=== PATIENT | female | born 1975 | race Caucasian/White ===

== ENCOUNTER 2020-09-13 15:19 | Outpatient (CLI) | payer OTHER, SELFPAY ==
--- NOTE | ~2020-09-13 | MM_ITS ---
EXAMINATION: MM screening [facility] HISTORY: Screening TECHNIQUE: Craniocaudal and mediolateral oblique 3-D tomosynthesis images were obtained and synthetic 2-D images were generated. CAD analysis was submitted and interpreted. COMPARISON: Comparison to multiple prior studies sequentially, with oldest reviewed study dated 08/28. BREAST PARENCHYMAL COMPOSITION: There are scattered areas of fibroglandular density. FINDINGS: There is no evidence of suspicious mass, calcification, or architectural distortion to sugg est malignancy in either breast. There has been no suspicious interval change. IMPRESSION: 1. No mammographic evidence of malignancy. 2. Recommend routine screening mammography in one year. BI-RADS Category 1: Negative Reviewed, dictated and finalized at location A.
== END 2020-09-13 15:20 | disposition home or self-care (01) ==
LOC: ANHIMG 15:23
PROVIDERS: PCP Obstetrics & Gynecology; Visit Provider Obstetrics & Gynecology
DX: Z12.31 Encounter for screening mammogram for malignant neoplasm of breast (principal)
CPT/HCPCS: 77063; 77067

== ENCOUNTER → 2020-10-16 01:12 | Outpatient (CLI) | payer OTHER, SELFPAY ==
[2020-10-16 19:43] LABS: SARS-CoV-2 RNA PCR Negative
== END ==
PROVIDERS: PCP Obstetrics & Gynecology; Visit Provider Internal Medicine Gastroenterology
DX: Z01.812 Encounter for preprocedural laboratory examination (principal); Z20.822 Contact with and (suspected) exposure to COVID-19
CPT/HCPCS: C9803; U0003; U0005

== ENCOUNTER 2020-10-20 02:18 | Day surgery (SDC) | payer OTHER, SELFPAY ==
[2020-10-12 08:50] VITALS: BMI 22.6
--- NOTE | 2020-10-20 08:24 | WPDANESEPPF ---
Anes - Initial Pre Proc Eval Procedure: Operation Date: 10/20/20 13:30 Proposed Procedures p Colonoscopy - Mani Murcia MD Date/Time: 10/20/20 08:24 Surgeon: Mani Murcia MD Pre Op Diagnosis: change in bowel habits, dark stools Patient Data Age: 45 Gender: F Height: 1.68 m Weight: 63.5 kg Allergies Allergy/AdvReac Type Severity Reaction Status Date / Time Penicillins Allergy Mild HIVES Verified 10/20/20 12:31 Home Medications Medication Instructions Recorded Confirmed Type sod picosulf 10 mg-magnes 3.5 160 ml PO BID #160 ml 09/28/20 10/20/20 Rx gram-citric 12 gram/160 mL oral solution Patient hx anesthesia problems: none Family hx anesthesia problems: none [facility] Past Medical History Medical History (Updated 10/20/20 @ 08:24 by Arik Hou MD) Arthritis Social History Social History Smoking status: Never smoker Alcohol intake: current Drinks per week: 3 Living arrangements: with family Spiritual care concerns: No Anes - Eval Final PreProcedure Day of Procedure 10/20/20 08:24 Patient weight: normal Heart: regular rate and rhythm Lungs: clear to auscultation and normal air movement Airway: Mallampati scale class II Neurological: alert and oriented Last oral intake: >/= 8 hours ASA classification: I Emergent: no Anesthetic plan: proceed Anesthesia type and monitoring: general GIVS Informed Consent: The patient's anesthetic plan and its attendant risks and benefits were discussed with the patient/family/POA. Questions were solicited and answers provided to the satisfaction of the patient/family/POA.
[2020-10-20 12:33] VITALS: BP 118/75; PULSE 86; RESP 16; TEMP 35.8; O2SAT 99; BMI 22.8
[2020-10-20] MEDS: LACTATED RINGERS 1,000 ML 150 ML IV CONT (12:54)
--- NOTE | 2020-10-20 13:02 | P.HP_ITS ---
History of Present Illness History of Present Illness Consent: Risks, benefits, and alternatives have been discussed and questions answered. Patient agrees to proceed with procedure. Chief complaint: change in bowel habits, dark stools Narrative: Betsy Mcneal is a 45 year old female here for first colon screening Review of Systems Constitutional: Constitutional: Denies headache(s) and Denies weakness Eyes: Eyes: Denies blurry vision ENT: Reports Normal hearing present, Denies headache(s) and Denies neck pain Cardiovascular: Cardiovascular: Denies chest pain and Denies dyspnea Respiratory: Respiratory: Denies dyspnea Gastrointestinal: Gastrointestinal: Reports no additional gastrointestinal complaints Genitourinary: Genitourinary: Denies dysuria Musculoskeletal: Musculoskeletal: Denies neck pain Integumentary/Breasts: Skin/Breast: Denies dry skin Neurologic: Reports Normal hearing present, Denies headache(s) and Denies weak ness Psychiatric: Psychiatric: Denies anxiety Endocrine: Endocrine: Denies change in body appearance Hematologic/Lymphatic: Hematologic/Lymphatic: Denies easy bleeding Allergic/Immunologic: Allergic/Immunologic: Denies urticaria PMFSH Past Medical History Medical History (Updated 10/20/20 @ 13:02 by Mani Murcia MD) Arthritis Colon cancer screening Social History Social History Smoking status: Never smoker Alcohol intake: current Drinks per week: 3 Living arrangements: with family Spiritual care concerns: No Meds Home Medications and Allergies Home Medications Medication Instructions Recorded Confirmed Type sod picosulf 10 mg-magnes 3.5 160 ml PO BID #160 ml 09/28/20 10/20/20 Rx gram-citric 12 gram/160 mL oral solution Allergies Allergy/AdvReac Type Severity Reaction Status Date / Time Penicillins Allergy Mild HIVES Verified 10/20/20 12:31 Vital Signs Vital Signs - 24 hr 10/20/20 12:33 Temperature 96.4 F L Pulse Rate 86 Respiratory Rate 16 Blood Pressure 118/75 Pulse Oximetry 99 Exam Const: General: comfortable and no acute distress HENMT: General nose exam: Normal nares present Eyes: General: appearance normal, both eyes and all related structures Neck: Neck: no JVD Resp: Auscultation: clear to auscultation bilaterally Cardio: Rate: regular rate Rhythm: regular rhythm GI: Inspection: non-distended GI Palp: Yes Soft to palpation Skin: General skin exam: normal color Neuro: General: gait normal Speech: normal speech Extrem: General: normal to inspection Psych: Mental Status: mental status grossly normal Assessment and Plan Assessment and plan (1) Colon cancer screening: Code(s): Z12.11 - Encounter for screening for malignant neoplasm of colon Status: Acute Assessment and Plan: colonoscopy
[2020-10-20 13:29] VITALS: BP 84/50; PULSE 69; RESP 22; O2SAT 100
[2020-10-20 13:39] VITALS: BP 102/67; BP 112/70; PULSE 65; PULSE 66; RESP 16; RESP 22; O2SAT 100
== END 2020-10-20 14:05 | disposition home or self-care (01) ==
PROVIDERS: PCP Internal Medicine; Referring Provider Obstetrics & Gynecology; Visit Provider Internal Medicine Gastroenterology
PROC: 0DJD8ZZ Inspection of Lower Intestinal Tract, Via Natural or Artificial Opening Endoscopic (ICD-10-PCS; CPT 45378; principal; 2020-10-20 13:30)
DX: Z12.11 Encounter for screening for malignant neoplasm of colon (principal); D12.5 Benign neoplasm of sigmoid colon; K63.5 Polyp of colon; K64.8 Other hemorrhoids
CPT/HCPCS: 45385; 88305; C9803; J2704; J7120; U0003; U0005

== ENCOUNTER 2022-05-10 08:36 | Outpatient (CLI) | payer BC, SELFPAY ==
--- NOTE | ~2022-05-10 | MM_ITS ---
EXAMINATION: MM screening [facility] BI w [facility] HISTORY: Screening mammogram TECHNIQUE: Craniocaudal and mediolateral oblique 3-D tomosynthesis images were obtained and synthetic 2-D images were generated. CAD analysis was submitted and interpreted. COMPARISON: 09/13/2020, 01/22/2019, 06/16/2017, 05/22/2017 BREAST PARENCHYMAL COMPOSITION: The breasts are heterogeneously dense, which may obscure small masses . FINDINGS: No suspicious mass, calcification, or architectural distortion are identified in either lesvia ast to suggest malignancy. There has been no suspicious interval change. IMPRESSION: 1. No mammographic evidence of malignancy. 2. Recommend routine screening mammography in one year. BI-RADS Category 1: Negative Reviewed, dictated and finalized at location A. ICE DELIVERY ANALYST
== END 2022-05-10 08:37 | disposition home or self-care (01) ==
LOC: ANHIMG 08:38
PROVIDERS: Visit Provider Obstetrics & Gynecology
DX: Z12.31 Encounter for screening mammogram for malignant neoplasm of breast (principal)
CPT/HCPCS: 77063; 77067

== ENCOUNTER 2024-07-29 14:27 | Outpatient (CLI) | payer BC, SELFPAY ==
--- NOTE | ~2024-07-29 | MM_ITS ---
EXAMINATION: MM screening [facility] BI w [facility] HISTORY: Screening mammogram TECHNIQUE: Craniocaudal and mediolateral oblique 3-D tomosynthesis images were obtained and synthetic 2-D images were generated. CAD analysis was submitted and interpreted. COMPARISON: 05/10/2022, 09/13/2020, 01/22/2019 BREAST PARENCHYMAL COMPOSITION:Dense: The breasts are heterogeneously dense, which may obscure small masses. FINDINGS: No suspicious mass, calcification, or architectural distortion are identified in either lesvia ast to suggest malignancy. There has been no suspicious interval change. IMPRESSION: No mammographic evidence of malignancy. Recommend routine screening mammography in one year. BI-RADS Category 1: Negative Reviewed, dictated and finalized at location . WORKING MACHINE FEEDER
--- OUTSIDE RECORDS SUMMARY | 2024-07-29 16:49 | XMS_ITS | Clinical Summary ---
Author Organization [facility] Address [address] [place] [address] Care Team Providers Care Supervisor Tower Name Role Phone Declan Swanson MD Primary Care Provider [phone] Allergies Active Allergy Reactions Criticality Noted Date Comments Penicillins Medications clotrimazole-bet amethasone (LOTRISONE) cream as needed 05/02/2020 Active estradiol-noreth indrone (ACTIVELLA) 0.5-0.1 mg per tablet TAKE 1 TABLET TABLET BY MOUTH DAILY 12/06/2022 Active guaiFENesin-code ine (GUAITUSS AC) liquid 100-10 mg/5 mL Take 5-10 mL by mouth every 4 (four) hours as needed for cough 120 mL 10/16/2023 Active meloxicam (MOBIC) 15 mg tabletIndication s:Chronic midline low back pain without sciatica TAKE 1 TABLET(15 MG) BY MOUTH DAILY 30 tablet 1 06/26/2024 Active Active Problems Problem Noted Date Diagnosed Date Herpes zoster without complication 09/04/2023 Assessment & Plan (09/04/2023 1:08 PM CDT): Keep area clean and dry. May use OTC topical antibacterial ointment. Wash hands frequently. Hematuria 07/13/2023 Arthralgia 07/13/2023 Rash of hand 05/11/2023 Elevated blood pressure reading 12/18/2022 Assessment & Plan (10/16/2023 6:49 PM CDT): Improved upon recheck; transient elevation likely d/t poor sleep, uri, decongestant use (alt therapies to consider) Reassured w/ normalized BP & cnt amb BPs Cnt interim BP monitoring to update revisit RX if trending up RTC as scheduled Assessment & Plan (12/18/2022 6:34 AM CDT): For now no absolute need to treat blood pressure. Some of this elevation white coat htn related and some with recent stress. Encouraged ongoing monitoring for now . Work on diet and exercise as doing. If bp remains >135/>85 then will consider rx perhaps with losartan. Otherwise reassured can monitor for now. Chronic midline low back pain without sciatica 0 06/15/2021 Assessment & Plan (07/13/2023 10:40 AM CARRIAGE FEEDER): Will get ortho physiatry , checking x rays, workingwith chiro Meloxicam as trial Assessment & Plan (06/16/2022 12:19 PM CARRIAGE FEEDER): She is working on diet and exercise. Assessment & Plan (06/15/2021 8:37 AM CARRIAGE FEEDER): No obvious alarming signs . Physical therapy if needed. X rays as screening for underlying oa or more serious issues Routine physical examination 02/05/2018 Assessment & Plan (07/13/2023 10:39 AM CARRIAGE FEEDER): Checking labs per routine and pertaining to problems listed . HM items reviewed and updated . No new concerns. Immunizations are utd. Assessment & Plan (06/16/2022 12:00 PM CARRIAGE FEEDER): Checking labs per routine and pertaining to problems listed . HM items reviewed and updated . No new concerns. Assessment & Plan (06/15/2021 8:25 AM CARRIAGE FEEDER): Checking labs per routine and pertaining to problems listed . HM items reviewed and updated . No new concerns. Assessment & Plan (05/21/2020 10:16 AM CARRIAGE FEEDER): Checking labs per routine and pertaining to problems listed . HM items reviewed and updated . No new concerns. Assessment & Plan (02/05/2019 10:22 AM CDT): Checking labs per routine and pertaining to problems listed . HM items reviewed and updated . No new concerns. Nonrheumatic mitral valve regurgitation 09/17/19 16 Overview (12/18/2022): Annotation: mild mr on echo in 2016 Echo 2021:. Normal global and regional left ventricular systolic function. Ejection Fraction is estimated at 65 %. Normal left ventricular diastolic function. Normal left ventricular cavity size. LV wall thickness is within normal limits. Trace MR Assessment & Plan (12/18/2022 6:36 AM CDT): Not an issue per recent echo. Will follow clinically . Has palpitations and if progressive then a monitor. Assessment & Plan (06/16/2022 12:19 PM CARRIAGE FEEDER): Echo fine with trace mr. Assessment & Plan (06/15/2021 8:38 AM CARRIAGE FEEDER): Remains asymtpomatic though will check echo to make certain not occult /progressive. Assessment & Plan (02/05/2018 10:33 AM CDT): No symptoms. 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 No symtpoms and has been considered group home cured. Only presented with visual disturbance post Assessment & Plan (06/16/2022 12:19 PM CARRIAGE FEEDER): No recurrent symptoms. Assessment & Plan (05/21/2020 10:31 AM CARRIAGE FEEDER): Checking labs now. No new concerns. Assessment & Plan (02/05/2019 10:22 AM CDT): No new symptoms. NO other complaints. Assessment & Plan (02/05/2018 10:31 AM CDT): Checking for symptoms periodically . Resolved Problems Problem Noted Date Diagnosed Date Resolved Date Upper respiratory symptom 10/16/2023 Pain of right thumb 02/05/2018 05/21/20 20 Assessment & Plan (02/05/2019 10:26 AM CDT): Tolerable and thought OA. No other concerns Assessment & Plan (02/05/2018 10:34 AM CDT): This is mild and she will monitor Cervicalgia 02/01/2017 06/15/2021 Assessment & Plan (05/21/2020 10:31 AM CARRIAGE FEEDER): No obvious new complications Assessment & Plan (02/05/2019 10:24 AM CDT): No weakness in the hands Assessment & Plan (02/05/2018 10:35 AM CDT): Will continue to monitor and working on strength and flexibility . Benign neoplasm of pituitary gland 05/22/2016 02/05/2018 Cephalalgia 08/05/2014 02/05/2018 Tachycardia, unspecified 06/19/201109/2018 Assessment & Plan (02/05/2018 10:36 AM CDT): No progression over time Immunizations Immunization Administration Dates Next Due Influenza, Quadrivalent, Spl it, Preservative Free, Intramuscular 02/13/2020,02/05/2018 Influenza, Trivalent, Preservative Free, Intramu scular 06/20/2016,01/16/2013 PPD TEST 02/13/2020 Tdap 02/05/2019,06/20/2016 Surgical History Surgery Date Site/Laterality Comments SECTION 08/27/2007 Medical History Medical History Date Comments Personal history of other di seases of the female genital tract History of polycystic ovaria n syndrome - (Added by TW Conv) Personal history of other sp ecified conditions History 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 Migraines 2021 Family History Medical History Relation Name Comments No Known Problems Brother 1 No Known Problems Brother 2 Scoliosis Daughter 1 linda([id number]) Family histor y of scoliosis - (Added by TW Conv) Atrial fibrillation Father Erasmo Bennett Diabetes Father Erasmo Bennett Family history of diabetes mellitus - (Added by TW Conv) Gout Father Erasmo Bennett Family history of gout - (Added by TW Conv) Heart disease Father Erasmo Bennett heart valve Father Erasmo Bennett Arthritis Mother Tawana Bennett Hypertension Other 1 Hypertension - (Added by TW Conv) Heart disease Other 2 Heart Disease - (Added by TW Conv) No Known Problems Sister Relation Name Status Comments Brother 1 Alive Brother 2 Alive Daughter 1 linda([email or web address]) Alive Daughter 2 donnell([id number]) Alive Father Erasmo Bennett Alive Mother Tawana Bennett Alive Other 1 Other 2 Sister Alive Son brian([id number]) Alive Social History Tobacco Use Types Packs/Day Years Used Date Smoking Tobacco: Never Smokeless Tobacco: Never Tobacco Cessation:Counseling Given: Not Answered AUDIT-C Answer Date Recorded Q1: How often do you have a drink containing alcohol? 4 or more times a week 06/16/2022 Q2: How many drinks containi ng alcohol do you have on a typical day when you are drinking? 1 or 2 Q3: How often do you have si x or more drinks on one occasion? Never 06/16/2022 PHQ-2 Answer Date Recorded PHQ-2 Total Score (If total score is 3 or more points, staff should administer the PHQ-9) 0 06/15/2022 Comments Unknown Sex and Gender Information Value Date Recorded Sex Assigned at Not on file Legal Sex Female 3:01 AM CARRIAGE FEEDER Gender Identity Female 05/19/2020 9:22 AM CARRIAGE FEEDER Sexual Orientation Straight 05/19/2020 9: 22 AM CARRIAGE FEEDER Obstetrics History Last Filed Vital Signs Vital Sign Reading Time Taken Comments Blood Pressure 130/78 10/16/2023 9:05 AM CDT Pulse 65 10/16/2023 9:05 AM CDT Temperature 36.9 C (98.4 F) 06/15/2021 7:52 AM CARRIAGE FEEDER Respiratory Rate - - Oxygen Saturation 99% 10/16/2023 9:05 AM CDT Inhaled Oxygen Concentration - - Weight 66.7 kg (147 lb) 10/16/2023 9:05 AM CDT Height 165.1 cm (5' 5 ) 10/16/2023 9:05 AM CDT Body Mass Index 24.46 10/16/2023 9:05 AM CDT Plan of Treatment Health Maintenance Due Date Last Done Comments Cervical Cancer Screening 1975 Hepatitis C Screening 1975 Hepatitis B Screening 1993 Breast Cancer Screening-Mammogram 01/23/2020 01/22/2019 Depression Screening 06/16/2023 06/16/2022 Covid-19 Vaccine (3 - season) 2024 08/03/2020, 06/24/2020 Regular Well Visit/Exam 18-64 07/13/2024 07/13/2023, 06/16/2022, 06/15/2021, Additional history exists Colon Cancer Screening-Colonoscopy 10/20/2025 10/20/2020 DTaP/Tdap/Td Vaccine (3 - Td or Tdap) 02/05/2029 02/05/2019, 06/20/2016 Influenza Vaccine Discontinued 02/13/2020, , 06/20/2016, Additional history exists Pneumococcal vaccine <65 Aged Out No longer eligible based on patient's age to complete this topic Procedures Procedure Name Priority Date/Time Associated Diagnosis Comments COLONOSCOPY Routine 10/20/2020 SCREENING MAMMOGRAM W ROBERTO Schedule Routine, Read Routine (OP Routine) 01/22/2019 from Last 3 Months or Most Recently Relevant to Health Maintenance Results * COLONOSCOPY (10/20/2020) Colonoscopy Unknown Comment:polyp patient thinks , per patient report us Historical Provider HEALTH MAINTENANCE Final Result * Screening Mammogram W Roberto (01/22/2019) Anatomical Region Laterality Modality Breast N/A Mammography us Historical Provider IMG MAMMO PROCEDURES Ilene l Result from Last 3 Months or Most Recently Relevant to Health Maintenance Insurance [place] Care Teams Supervisor Tower Relationship Specialty Start Date End Date Declan Swanson MD PCP - General Internal Medicine 10/03/17
--- OUTSIDE RECORDS SUMMARY | 2024-07-29 16:49 | XMS_ITS | Clinical Summary ---
Author Organization [facility] Address [address] [place] [address] Phone Care Team Providers Care Cam Milling Machine Operator Name Role Phone Declan Swanson MD Primary Care Provider [phone] Allergies Active Allergy Reactions Criticality Noted Date Comments Penicillins Hives High 07/26/2015 Medications fluticasone (FLONASE) 50 mcg/spray Lewisberry, Suspension Administer 2 Sprays in each nostril 1 time daily as needed for Rhinitis. Active estradiol (ESTRACE) 0.01% (0.1 mg/g) vaginal creamIndication s:Vaginal dryness Insert vaginally daily Place on applicator-full vaginally at bedtime twice weekly x 3 weeks, then weekly after that.. 42.5 Gram 4 6 Active progesterone micronized (PROMETRIUM) 200 mg Capsule Take 200 mg by mouth daily at bedtime. 2 7 Active progesterone micronized (PROMETRIUM) 200 mg CapsuleIndicati ons:Abnormal uterine bleeding (AUB) Take 1 Capsule (200 mg) by mouth daily at bedtime. 30 Capsule 5 8 Active tranexamic acid (LYSTEDA) 650 mg Tablet tabletIndicatio ns:Menorrhagia with regular cycle TAKE 2 TABLETS BY MOUTH THREE TIMES DAILY 30 Tablet 4 8 Active Active Problems No known active problems Family History Medical History Relation Name Comments Diabetes Father Diabetes Paternal Grandfather Relation Name Status Comments Father Paternal Grandfather Social History Tobacco Use Types Packs/Day Years Used Date Smoking Tobacco: Never Smokeless Tobacco: Never Alcohol Use Standard Drinks/Week Comments Yes 0 (1 standard drink = 0.6 oz pur e alcohol) occasional Comments No Sex and Gender Information Value Date Recorded Sex Assigned at Not on file Legal Sex Female 6:07 AM BEAUTY PARLOR CLEANER Gender Identity Not on file Sexual Orientation Not on file Last Filed Vital Signs Vital Sign Reading Time Taken Comments Blood Pressure 98/78 06/14/2017 11:12 AM BEAUTY PARLOR CLEANER Pulse 58 10/31/2016 1:08 PM CDT Temperature 36.5 C (97.7 F) 10/31/2016 12:55 PM CDT Respiratory Rate 15 10/31/2016 1:08 PM CDT Oxygen Saturation 100% 10/31/2016 1:08 PM CDT Inhaled Oxygen Concentration - - Weight 62.1 kg (137 lb) 06/14/2017 11:12 AM BEAUTY PARLOR CLEANER Height 167.6 cm (5' 6 ) 06/14/2017 11:12 AM BEAUTY PARLOR CLEANER Body Mass Index 22.11 06/14/2017 11:12 AM BEAUTY PARLOR CLEANER Plan of Treatment Health Maintenance Due Date Last Done Comments DTAP/TDAP/TD VACCINES (1 - Tdap) 1994 HEPATITIS B VACCINES (1 of 3 - 19+ 3-dose series) 1994 CERVICAL CANCER SCREENING 2005 BREAST CANCER SCREENING 2015 COLORECTAL SCREENING 01/25/2020 Colorectal Cancer Screening 01/25/2020 FIT-DNA Q 3 years 01/25/2020 FIT/FOBT Q 1 year 01/25/2020 Flex Sig/CT Colonography Q 5 years 01/25/2020 INFLUENZA VACCINE (#1) 2024 PNEUMOCOCCAL VACCINE 0-64 YEARS Aged Out No longer eligible based on patient's age to complete this topic Insurance Advance Directives For more information, please contact: [phone] * Full Code (Latest Code Status on File) Date Activated Date Inactivated Comments 10/31/2016 1:03 PM 10/31/2016 3:26 PM * Full Code Date Activated Date Inactivated Comments 10/31/2016 10:50 AM 10/31/2016 1:03 PM * Full Code Date Activated Date Inactivated Comments 10/31/2016 10:26 AM 10/31/2016 10:50 AM Care Teams Cam Milling Machine Operator Relationship Specialty Start Date End Date Declan Swanson MD [address] [place] [address] DR Daniel GUZMAN [address] [place] [phone] PCP - General Internal Medicine 10/25/16
--- OUTSIDE RECORDS SUMMARY | 2024-07-29 16:49 | XMS_ITS | Clinical Summary ---
Author Organization [facility] Address [address] [place] [address] Care Team Providers Care Medical Radiation Tech Name Role Phone Declan Swanson MD Primary Care Provider [phone] Source Comments [facility],non-[facility]iliates and Associated Physician Practices is amultiple site organization consisting of ambulatory clinics and hospital sitesin [place], [place], [place] and [place]. This disclosure is being madepursuant to the Care Everywhere program and may not contain all information available regarding this patient. Last updated 18.[facility] Allergies Active Allergy Reactions Criticality Noted Date Comments Penicillins Urticaria Medium 07/26/2015 Medications Be aware that medications may not be up to date on this document. Always verify current medications with the patient. No known medications Active Problems No known active problems Family History Medical History Relation Name Comments Cancer - Skin, Melanoma Neg Hx Cancer - Skin, Non Melanoma Neg Hx Social History Tobacco Use Types Packs/Day Years Used Date Smoking Tobacco: Never Smokeless Tobacco: Never Alcohol Use Standard Drinks/Week Comments Yes 0 (1 standard drink = 0.6 oz pur e alcohol) weekly Sex and Gender Information Value Date Recorded Sex Assigned at Not on file Gender Identity Not on file Sexual Orientation Not on file Plan of Treatment Health Maintenance Due Date Last Done Comments COLOGUARD (AGES 45-75) - COL ON CA SCREENING 1975 COLON MONITORING 1975 COLONOSCOPY - COLON CA SCREENING 1975 CT COLONOGRAPHY - COLON CA SCREENING 1975 Colorectal Cancer Screening 1975 FIT - COLON CA SCREENING 1975 FLEX SIG - COLON CA SCREENING 1975 LIPID TESTING 1975 MAMMOGRAM 1975 PAP SMEAR 1975 HIV SCREENING 1990 HEPATITIS C SCREENING 01/19/1993 DTAP/TDAP/TD VACCINES (1 - Tdap) 1994 HEPATITIS B VACCINE (1 of 3 - 19+ 3-dose series) 1994 COVID-19 VACCINE (1 - 2023-2 5 season) 2024 INFLUENZA VACCINE (#1) 2024 DEPRESSION SCREENING 06/04/2024 ZOSTER VACCINE (1 of 2) 2025 HIB VACCINE Aged Out No longer eligi ble based on patient's age to complete this topic HPV VACCINE Aged Out No longer eligi ble based on patient's age to complete this topic MENINGOCOCCAL (Group B) VACCINE Aged Out No longer eligible based on patient's age to complete this topic MENINGOCOCCAL VACCINE Aged Out No danielle tracee eligible based on patient's age to complete this topic PNEUMOCOCCAL VACCINE Aged Out No long er eligible based on patient's age to complete this topic Care Teams Medical Radiation Tech Relationship Specialty Start Date End Date Declan Swanson MD [address] [place] [address] DR Daniel GUZMAN [address] [place] [phone] PCP - General 07/30/19
--- OUTSIDE RECORDS SUMMARY | 2024-07-29 16:49 | XMS_ITS | Referral Summary ---
Author Organization [facility] Address [address] [place] [address] Care Team Providers Care Leather Whitener Name Role Phone Declan Swanson MD Primary Care Provider [phone] Allergies Active Allergy Reactions Criticality Noted Date [...] 06/15/2021 Assessment & Plan (07/13/2023 10:40 AM CLOTH INSPECTOR): Will get ortho physiatry , checking x rays, workingwith chiro Meloxicam as trial Assessment & Plan (06/16/2022 12:19 PM CLOTH INSPECTOR): She is working on diet and exercise. Assessment & Plan (06/15/2021 8:37 AM CLOTH INSPECTOR): No obvious alarming signs . Physical therapy if needed. X rays as screening for underlying oa or more serious issues Routine physical examination 02/05/2018 Assessment & Plan (07/13/2023 10:39 AM CLOTH INSPECTOR): Checking labs per routine and pertaining to problems listed . HM items reviewed and updated . No new concerns. Immunizations are utd. Assessment & Plan (06/16/2022 12:00 PM CLOTH INSPECTOR): Checking labs per routine and pertaining to problems listed . HM items reviewed and updated . No new concerns. Assessment & Plan (06/15/2021 8:25 AM CLOTH INSPECTOR): Checking labs per routine and pertaining to problems listed . HM items reviewed and updated . No new concerns. Assessment & Plan (05/21/2020 10:16 AM CLOTH INSPECTOR): Checking labs per routine and pertaining to [...] monitor. Assessment & Plan (06/16/2022 12:19 PM CLOTH INSPECTOR): Echo fine with trace mr. Assessment & Plan (06/15/2021 8:38 AM CLOTH INSPECTOR): Remains asymtpomatic though will check echo to make certain not occult /progressive. Assessment & Plan (02/05/2018 10:33 AM CDT): No symptoms. 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 No symtpoms and has been considered detention cured. Only presented with visual disturbance post Assessment & Plan (06/16/2022 12:19 PM CLOTH INSPECTOR): No recurrent symptoms. Assessment & Plan (05/21/2020 10:31 AM CLOTH INSPECTOR): Checking labs now. No new concerns. Assessment [...] 06/15/2021 Assessment & Plan (05/21/2020 10:31 AM CLOTH INSPECTOR): No obvious new complications Assessment & Plan [...] scular 06/20/2016,01/16/2013 PPD TEST 02/13/2020 Tdap 02/05/2019,06/20/2016 Social History Tobacco Use Types Packs/Day Years [...] on file Legal Sex Female 3:01 AM CLOTH INSPECTOR Gender Identity Female 05/19/2020 9:22 AM CLOTH INSPECTOR Sexual Orientation Straight 05/19/2020 9: 22 AM CLOTH INSPECTOR Last Filed Vital Signs Vital Sign Reading Time Taken Comments Blood Pressure 130/78 10/16/2023 9:05 AM CDT Pulse 65 10/16/2023 9:05 AM CDT Temperature 36.9 C (98.4 F) 06/15/2021 7:52 AM CLOTH INSPECTOR Respiratory Rate - - Oxygen Saturation 99% 10/16/2023 9:05 AM CDT Inhaled Oxygen Concentration - - Weight 66.7 kg (147 lb) 10/16/2023 9:05 AM CDT Height 165.1 cm (5' 5 ) 10/16/2023 9:05 AM CDT Body Mass Index 24.46 10/16/2023 9:05 AM CDT Plan of Treatment Not on file Procedures Procedure Name Priority Date/Time Associated Diagnosis Comments COLONOSCOPY Routine 10/20/2020 SCREENING MAMMOGRAM W ROBERTO Schedule Routine, Read Routine (OP Routine) 01/22/2019 from Last 3 Months or Most Recently Relevant to Health Maintenance Results * COLONOSCOPY (10/20/2020) Colonoscopy Unknown Comment:polyp patient thinks , per patient report Historical Provider HEALTH MAINTENANCE Final Result * Screening Mammogram W Roberto (01/22/2019) Anatomical Region Laterality Modality Breast N/A Mammography Historical Provider IMG MAMMO PROCEDURES Ilene l Result from Last 3 Months or Most Recently Relevant to Health Maintenance [place] Care Teams Leather Whitener Relationship Specialty Start Date End Date Declan Swanson MD PCP - General Internal Medicine 10/03/17
--- OUTSIDE RECORDS SUMMARY | 2024-07-29 16:49 | XMS_ITS | Referral Summary ---
Author Organization [facility] Address [address] [place] [address] Care Team Providers Care Plant Operations Vice President Name Role Phone Declan Swanson MD Primary Care Provider [phone] Source Comments [facility] Affiliates and Associated Physician Practices is amultiple site organization consisting of ambulatory clinics and hospital sitesin [place], [place], [place] and [place]. This disclosure is being madepursuant to the Care Everywhere program and may not contain all informatio navailable regarding this patient. Last updated 18.[facility] Allergies Active Allergy Reactions Criticality Noted Date Comments Penicillins Urticaria Medium 07/26/2015 Medications Be aware that medications may not be up to date on this document. Always verify current medications with the patient. No known medications Active Problems No known active problems Social History Tobacco Use Types Packs/Day Years Used Date Smoking Tobacco: Never Smokeless Tobacco: Never Alcohol Use Standard Drinks/Week Comments Yes 0 (1 standard drink = 0.6 oz pur e alcohol) weekly Sex and Gender Information Value Date Recorded Sex Assigned at Not on file Gender Identity Not on file Sexual Orientation Not on file Plan of Treatment Not on file Care Teams Plant Operations Vice President Relationship Specialty Start Date End Date Declan Swanson MD [facility] [address] Daniel GUZMAN [address] [place] [phone] PCP - General 07/30/19
--- OUTSIDE RECORDS SUMMARY | 2024-07-29 16:49 | XMS_ITS | Continuity of Care Document ---
Author Organization [facility] Address [address] [place] [address] Phone Care Team Providers Care Black Belt Name Role Phone Maynor Puga Unavailable Unavailable Procedures Procedure Date Therapeutic Exercise Neuromuscular Re-Ed Manual Therapy Hot or Cold Pack Therapeutic Exercise Neuromuscular Re-Ed Manual Therapy Hot or Cold Pack Therapeutic Exercise Neuromuscular Re-Ed Manual Therapy Hot or Cold Pack PT Evaluation Low Complexity Therapeutic Exercise Manual Therapy Advance Directives Directive Yes / No Effective Date File Name No Information Encounters Encounter Description Practice Location Reason(s) For Visit Diagnoses Date Provider Providers Copied on Encounter [facility] [address], [place], [place], [id number], tel:[phone] Tillar No Information 7 Nayeli Mcguire. [address] [facility], [address], [place], [address], [place]. tel:[phone] Referring Provider: Declan Swanson, [address], [place], [address]. tel:[phone] [facility] [facility] [address], [place], [place], [id number], tel:[phone] Tillar No Information 7 Muehl Maynor. [address] [facility] [address], [place], [facility], [place]. tel:[phone] Referring Provider: Declna Swanson, [address] [place] [address] [facility], [place], [address]. tel:[phone], [id number], tel:[phone] Tillar No Information 7 Muehl Maynor. [address] [facility] [address], [address], [place]. tel:[phone] Referring Provider: Declan Swanson, [address] [place] [address], [place], [address]. tel:[phone], [id number], tel:[phone] Tillar CervicalgiaSegme ntal and somatic dysfunction of cervical regionSegmental and somatic dysfunction of thoracic regionHeadache Muehl Maynor. [address], [address], [place]. tel:[phone] Referring Provider: Declan Swanson, [address] [place] [address], [address]. tel:[phone] Family History Family Member Type Diagnosis Age At Onset No Information Payers Payer name Insurance type Covered constitution party ID Ulisesa nivia(s) [facility] CI [id number] Social History Type Description Quantity Date Captured Comments Sex Female Smoking Status No Information Chief Complaint And Reason For Visit No Information Reason For Referral Reason For Referral No Information History Of Present Illness Encounter Date Complaint History Of Prese nt Illness No Information Functional Status Date Functional Assessmen t No Information Instructions Date Instruction Additional Infor mation No Information Assessments Type Assessment Date No Information Patient Care Teams Name Effective Dates (start - stop) Status Members No Information
--- OUTSIDE RECORDS SUMMARY | 2024-07-29 16:49 | XMS_ITS | Patient Health Summary ---
Author Organization [facility] Address [address] [place] [address] Care Team Providers Care Repairer Engine Production Name Role Phone Declan Swanson MD Primary Care Provider [phone] Note from [facility],non-owned Affiliates and Associated Physician Practices is amultiple site organization consisting of ambulatory clinics and hospital sitesin [place], [place], [place] and [place]. This disclosure is being madepursuant to the Care Everywhere program and may not contain all information available regarding this patient. Last updated 18.[facility] Allergies * Penicillins(Urticaria) -Medium Criticality Medications Be aware that medications may not [...] on file Sexual Orientation Not on file Procedures * [place] PUNCH BX SKIN SINGLE LESION(Performed 07/30/2019) Performed for Neoplasm of uncertain behavior of skin * DERMATOPATHOLOGY(Performed 07/30/2019) Performed for Neoplasm of uncertain behavior of skin Results * MO PUNCH BX SKIN SINGLE LESION (07/30/2019 2:21 PM NAILING MACHINE FEEDER) Narrative Mini Guzman MD - 07/30/2019 2:21 PM NAILING MACHINE FEEDER Ilene Hall DO 07/30/2019 2:22 PM Risks, benefits and alternatives to punch biopsy were discussed with the patient. Verbal consent was obtained. Location: right upper back Punch biopsy: 5 mm Skin prep: Alcohol Anesthesia: 1% lidocaine with epinephrine Closure: 4-0 nylon suture x2 Dressing and wound care discussed. Patient agrees to phone call for results and message if not available. Ilene Hall DO Mini Guzman MD PROCEDURE/ALMA R SURGICAL ORDERABLES * DERMATOPATHOLOGY (07/30/2019 12:00 AM NAILING MACHINE FEEDER) Case Report Dermatopathology Report Case: [id number] Authorizing Provider: Mini Guzamn, Collected: 07/30/2019 12:00 AM Ordering Location: [facility] Received: 07/31/2019 01:30 PM Dermatology Pathologist: Gisela Cisneros MD Specimen: Skin, right upper back 0 1:14 PM NAILING MACHINE FEEDER DERMATOPATHOLOGY LABORATORY Final Diagnosis Specimen A. SKIN, right upper back: EPIDERMOID CYST (L72.0) 0 1:14 PM NAILING MACHINE FEEDER DERMATOPATHOLOGY LABORATORY Clinical History Cyst vs dilated pore of Smith. 0 1:14 PM NAILING MACHINE FEEDER DERMATOPATHOLOGY LABORATORY Gross Description Specimen A: Received is one formalin filled container labeled with the patient's name and designated right upper back. The specimen consists of a punch biopsy measuring [id number], bisected. Jar 0. 0 1:14 PM NAILING MACHINE FEEDER DERMATOPATHOLOGY LABORATORY Microscopic Description Specimen A. SKIN, right upper back: Within the dermis, there is a space lined by epithelium that resembles normal epidermis and the infundibular portion of the hair follicle. 0 1:14 PM NAILING MACHINE FEEDER DERMATOPATHOLOGY LABORATORY Disclaimer An external and internal positive and negative controls are appropriate for the histochemical, immunohistochemical and immunofluorescence stain(s) in this case (if any), except where stated explicitly. The performance characteristics of the stain(s) cited in this report were developed and its performance characteristic determined by the Dermatopathology Laboratory at [facility], directed by Dr. Christy Bocanegra. These tests need not be, and therefore are not, approved by the [place] Food and Drug Administration. The tests are used for clinical purposes. Billing Codes Specimen Charges Stain Charges 17146 1 0 1:14 PM NAILING MACHINE FEEDER DERMATOPATHOLOGY LABORATORY Embedded Images 0 1:14 PM NAILING MACHINE FEEDER DERMATOPATHOLOGY LABORATORY Pathology/Cytolog y TISSUE SPECIMEN FROM SKIN / Unknown 07/30/2019 07/31/2019 1:30 PM NAILING MACHINE FEEDER Mini Guzman MD LAB - PATHOLOG Y/CYTOLOGY ORDERABLES DERMATOPATHOLOGY LABORATORY [facility] - Department of Dermatology [address] [facility] 5th Floor Lab [address] [phone] Care Teams Repairer Engine Production Relationship Specialty Start Date End Date Declan Swanson MD [address] [place] [address] DR Daniel GUZMAN [address] [place] [phone] PCP - General 07/30/19
== END 2024-07-29 14:28 | disposition home or self-care (01) ==
LOC: ANHIMG 14:29
PROVIDERS: Visit Provider Obstetrics & Gynecology
DX: Z12.31 Encounter for screening mammogram for malignant neoplasm of breast (principal)
CPT/HCPCS: 77063; 77067